=== PATIENT | female | born 1980 | race Caucasian/White ===

== ENCOUNTER 2017-05-15 10:10 | Emergency (ER) | payer MEDICAID ==
--- NOTE | 2017-05-15 10:52 | XR ---
EXAMINATION TYPE: XR ankle complete RT DATE OF EXAM: 05/15/2017 COMPARISON: NONE HISTORY: 36-year-old female fall downstairs, lateral sided pain TECHNIQUE: 3 views FINDINGS: There is a minimally displaced oblique fracture of the distal fibula at the level of the ankle joint line. There is borderline widening of the medial clear space at 4.1 mm. Talar dome appears intact. Po sterior malleolus appears intact. Subtalar joint is aligned. Tiny plantar and posterior calcaneal spu rs. Underlying ankle joint effusion noted. IMPRESSION: 1. Minimally displaced oblique fracture of the lateral malleolus. 2. Borderline widening of the medial clear space could reflect underlying deltoid ligament injury. Co nsider a medial stress view to evaluate the integrity of the deltoid ligament.
--- NOTE | 2017-05-15 11:11 | ED ---
General Adult HPI - General Chief complaint: Fall Stated complaint: fall/rt leg injury Time Seen by Provider: 05/15/17 10:19 Source: patient, RN notes reviewed Mode of arrival: wheelchair Limitations: no limitations - History of Present Illness Initial comments: Patient is a 36-year-old female who presents emergency room today with chief complaint of an injury to the right ankle that occurred approximately 2 hours. Does not that she slipped going down some stairs. Denies any other injury. Denies any head injury or loss consciousness. Admits to pain locally to the right ankle with difficulty ambulating due to pain. Patient denies any recent fever, chills, shortness of breath, chest pain, back pain, abdominal pain, nausea or vomiting, numbness or tingling, dysuria or hematuria, constipation or diarrhea, headaches or visual changes, or any other complaints. - Related Data Home Medications Medication Instructions Recorded Confirmed ALPRAZolam [Xanax] 0.5 mg PO DAILY PRN 05/15/17 05/15/17 Cetirizine HCl [Zyrtec] 10 mg PO DAILY 05/15/17 05/15/17 Doxycycline Hyclate 100 mg PO BID 05/15/17 05/15/17 Escitalopram [Lexapro] 30 mg PO DAILY 05/15/17 05/15/17 Ibuprofen [Motrin] 800 mg PO ONCE PRN 05/15/17 05/15/17 buPROPion XL [Wellbutrin Xl] 150 mg PO DAILY 05/15/17 05/15/17 Previous Rx's Medication Instructions Recorded Acetaminophen-Codeine 300-30mg 1 each PO Q6H PRN #20 tablet 05/15/17 [Tylenol #3] Allergies Allergy/AdvReac Type Severity Reaction Status Date / Time No Known Allergies Allergy Verified 05/15/17 10:45 Review of Systems ROS Statement: Those systems with pertinent positive or pertinent negative responses have been documented in the HPI. ROS Other: All systems not noted in ROS Statement are negative. Past Medical History Past Medical History: No Reported History History of Any Multi-Drug Resistant Organisms: None Reported Past Surgical History: Appendectomy, Cholecystectomy Past Psychological History: Anxiety, Depression Smoking Status: Current some day smoker Past Alcohol Use History: Rare Past Drug Use History: None Reported General Exam - General Exam Comments Initial Comments: General: The patient is awake and alert, in no distress, and does not appear acutely ill. Neck: The neck is supple, there is no tenderness or JVD. Cardiovascular: There is a regular rate and rhythm. No murmur, rub or gallop is appreciated. Respiratory: Lungs are clear to auscultation, respirations are non-labored, breath sounds are equal. No wheezes, stridor, rales, or rhonchi. Musculoskeletal: Patient does have moderate swelling to the lateral aspect of the right ankle. Tender over the lateral malleolus. No tenderness over the medial. Tender in ATFL. Sensation intact. Pulses equal bilaterally 2+. No tenderness down to the right foot. No tenderness to the fibular head or right knee. Neurological: A&O x 3. CN II-XII intact, There are no obvious motor or sensory deficits. Coordination appears grossly intact. Speech is normal. Skin: Skin is warm and dry and no rashes or lesions are noted. Psychiatric: Normal mood and affect. Limitations: no limitations Course Vital Signs 05/15/17 10:12 Temperature 97.8 F Pulse Rate 89 Respiratory 17 Rate Blood Pressure 135/65 O2 Sat by Pulse 96 Oximetry Medical Decision Making - Medical Decision Making Patient x-ray reviewed and does show fracture the distal fibula. Case was discussed with attending physician Dr. William. CT of the ankle was also obtained. Patient has been splinted in a posterior short leg OCL splint. Neurovascular rechecked and intact. Patient will be given prescription for crutches and advised nonweightbearing on pain medication advised follow-up with newsperson over the next 2 days. Disposition Clinical Impression: Ankle fracture Disposition: HOME SELF-CARE Condition: Good Instructions: Ankle Fracture (ED) Additional Instructions: Please use medication as discussed. Continue to ice elevate and follow-up orthopedics over the next 2 days. Please see splinted in place until follow-up appointment. Please use crutches with nonweightbearing. Please return to emergency room if the symptoms increase or worsen or for any other concerns. Prescriptions: Acetaminophen-Codeine 300-30mg [Tylenol #3] 1 each PO Q6H PRN #20 tablet PRN Reason: Pain Referrals: Humble Michael DO [Primary Care Provider] - 1-2 days Rodriguez Guzman MD [STAFF PHYSICIAN] - 1-2 days Time of Disposition: 12:12
--- NOTE | 2017-05-15 11:57 | CT ---
CT right ankle history: Fracture Helical acquisition through the right ankle Comparison to plain film same date Oblique distal metaphyseal right fibular fracture is again noted, there is no significant displacemen t. Minimal comminuted fragments are present distally at the medial extent. There is no evident disloc ation. There is associated soft tissue swelling present. Ankle joint is intact. Achilles tendon is li catarino intact. Flexor and extensor tendons felt to be intact. IMPRESSION: Fracture as described and plain film. Additional findings above.
[2017-05-15 12:34] VITALS: BP 122/63; PULSE 64; RESP 18; TEMP 98.1
== END 2017-05-15 12:33 | disposition home or self-care (01) ==
LOC: EC 10:10
DX: S82.831A Other fracture of upper and lower end of right fibula, initial encounter for closed fracture (principal); F41.9 Anxiety disorder, unspecified; F32.9 Major depressive disorder, single episode, unspecified; F17.200 Nicotine dependence, unspecified, uncomplicated; Z79.899 Other long term (current) drug therapy; W10.9XXA Fall (on) (from) unspecified stairs and steps, initial encounter
CPT/HCPCS: 29515; 99284

== ENCOUNTER → 2017-12-11 | Outpatient (CLI) | payer MEDICAID | END | disposition home or self-care (01) | LOC: LABWHC1 11:42 | PROVIDERS: ATTEND Orthopaedic Surgery | DX: E55.9 Vitamin D deficiency, unspecified (principal) | CPT/HCPCS: 36415; 82306 ==

== ENCOUNTER → 2019-05-10 | Outpatient (CLI) | payer MEDICAID ==
[2019-05-10 14:02] LABS: African American GFR (CKD) 94.7 (60.0-200.0); Albumin 4.2 g/dL (3.80-4.90); Albumin/Globulin Ratio 2.21 (1.60-3.17); Anion Gap 9.6 mmol/L (4.00-12.00); Calcium 9.6 mg/dL (8.7-10.3); Carbon Dioxide 24.4 mmol/L (21.6-31.8); Globulin 1.9 g/dL (1.6-3.3); Potassium 4.1 mmol/L (3.5-5.5); Total Bilirubin 0.5 mg/dL (0.3-1.2); Total Protein 6.1 g/dL (6.2-8.2)
== END | disposition home or self-care (01) ==
LOC: LABWHC1 07:34
PROVIDERS: ATTEND Physician Assistant
DX: L70.0 Acne vulgaris (principal)
CPT/HCPCS: 36415; 80053

== ENCOUNTER → 2020-11-20 | Outpatient (CLI) | payer MEDICAID | END | disposition home or self-care (01) | LOC: LABWHC1 15:52 | PROVIDERS: ATTEND Family Medicine | DX: Z03.818 Encounter for observation for suspected exposure to other biological agents ruled out (principal); Z20.822 Contact with and (suspected) exposure to COVID-19 | CPT/HCPCS: U0003; C9803; U0005 ==

== ENCOUNTER → 2020-12-04 | Outpatient (CLI) | payer MEDICAID ==
[2020-12-05 00:13] LABS: Basophils # (A) 0.05 X 10*3/uL (0.00-0.10); Basophils % (A) 0.5 %; Eosinophils # (A) 0.25 X 10*3/uL (0.04-0.35); Eosinophils % (A) 2.7 %; HCT 45.3 % (37.2-46.3); HGB 15.1 g/dL (12.0-15.0); Lymphocytes # (A) 2.55 X 10*3/uL (0.90-5.00); Lymphocytes % (A) 27.2 %; MCH 31.8 pg (27.0-32.0); MCHC 33.3 g/dL (32.0-37.0); MCV 95.4 fL (80.0-97.0); Mean Platelet Volume 9.9 fL (9.5-12.2); Monocytes % (A) 6.4 %; Neutrophils # (A) 5.91 X 10*3/uL (1.80-7.70); Platelet Count 264 X 10*3/uL (140-440); RBC 4.75 X 10*6/uL (4.10-5.20); RDW 11.9 % (11.5-14.5); WBC 9.38 X 10*3/uL (4.50-10.00)
[2020-12-05 04:11] LABS: African American GFR (CKD) 93.4 (60.0-200.0); Albumin 4.3 g/dL (3.80-4.90); Albumin/Globulin Ratio 1.72 (1.60-3.17); Anion Gap 9.4 mmol/L (4.00-12.00); BUN/Creat Ratio 15.56 Ratio (12.00-20.00); Carbon Dioxide 24.6 mmol/L (21.6-31.8); Globulin 2.5 g/dL (1.6-3.3); Non-African American GFR(CKD) 80.5 (60.0-200.0); Potassium 4.1 mmol/L (3.5-5.5); Total Bilirubin 0.2 mg/dL (0.3-1.2); Total Protein 6.8 g/dL (6.2-8.2)
[2020-12-05 04:20] LABS: T4, Free (Free Thyroxine) 1.1 ng/dL (0.80-1.80)
== END | disposition home or self-care (01) ==
LOC: LABWHC1 15:07
PROVIDERS: ATTEND Family Medicine
DX: B34.1 Enterovirus infection, unspecified (principal); R53.81 Other malaise
CPT/HCPCS: 36415; 80053; 82306; 84439; 84443; 85025

== ENCOUNTER → 2021-11-29 | Outpatient (CLI) | payer MEDICAID ==
--- NOTE | 2021-11-29 22:13 | XR ---
EXAMINATION TYPE: XR hand complete LT DATE OF EXAM: 11/29/2021 CLINICAL HISTORY: Left hand pain worse and third PIP joint. TECHNIQUE: Frontal, lateral and oblique images of the left hand are obtained. COMPARISON: None. FINDINGS: There is no acute fracture/dislocation evident in the left hand. Mild to moderate narrowin g throughout the PIP and DIP joints of the phalanges also at level of the fifth MCP joint. No signif icant spurring. The overlying soft tissue appears unremarkable. IMPRESSION: As above.
== END | disposition home or self-care (01) ==
LOC: RADXRMAIN 16:47
PROVIDERS: ATTEND Family Medicine
DX: M79.642 Pain in left hand (principal)

== ENCOUNTER → 2021-12-03 | Outpatient (CLI) | payer MEDICAID ==
[2021-12-03 23:11] LABS: Basophils # (A) 0.06 X 10*3/uL (0.00-0.10); Basophils % (A) 0.4 %; Eosinophils # (A) 0.04 X 10*3/uL (0.04-0.35); Eosinophils % (A) 0.3 %; HCT 48.7 % (37.2-46.3); HGB 15.5 g/dL (12.0-15.0); Lymphocytes # (A) 2.03 X 10*3/uL (0.90-5.00); Lymphocytes % (A) 13.3 %; MCH 30.9 pg (27.0-32.0); MCHC 31.8 g/dL (32.0-37.0); Mean Platelet Volume 9.5 fL (9.5-12.2); Monocytes # (A) 0.37 X 10*3/uL (0.20-1.00); Monocytes % (A) 2.4 %; NRBC Per 100 WBC 0 /100 WBCS (0.0-0.0); Neutrophils # (A) 12.64 X 10*3/uL (1.80-7.70); Neutrophils % (A) 82.6 %; Platelet Count 297 X 10*3/uL (140-440); RBC 5.02 X 10*6/uL (4.10-5.20); RDW 12.7 % (11.5-14.5); WBC 15.29 X 10*3/uL (4.50-10.00)
[2021-12-03 23:28] LABS: Glucose 107 mg/dL (70-110); Potassium 4.1 mmol/L (3.5-5.5); Sodium 140 mmol/L (135-145)
[2021-12-03 23:29] LABS: ALT 14 U/L (8-44); AST 10 U/L (13-35); African American GFR (CKD) 109.5 (60.0-200.0); Albumin 4.2 g/dL (3.8-4.9); Albumin/Globulin Ratio 1.75 (1.60-3.17); Alkaline Phosphatase 50 U/L (41-126); BUN/Creat Ratio 23.98 Ratio (12.00-20.00); Blood Urea Nitrogen 18.8 mg/dL (9.0-27.0); C Reactive Protein <0.30 mg/dL (0.00-0.80); Calcium 9.5 mg/dL (8.7-10.3); Carbon Dioxide 27.7 mmol/L (20.0-27.5); Chloride 98 mmol/L (96-109); Globulin 2.4 g/dL (1.6-3.3); Non-African American GFR(CKD) 94.5 (60.0-200.0); Total Protein 6.5 g/dL (6.2-8.2); Uric Acid 4.6 mg/dL (2.9-7.7)
[2021-12-03 23:36] LABS: Rheumatoid Factor, Qnt <10 IU/mL (0-15)
[2021-12-04 01:00] LABS: Erythrocyte Sedimentation Rate 4 mm/Hr (0-20)
[2021-12-04 05:20] LABS: Cyclic Citrull Pep IgG Unit <0.5 U/mL; Cyclic Citrullinated Pep IgG NEGATIVE (NEGATIVE)
== END | disposition home or self-care (01) ==
LOC: LABWHC1 12:31
PROVIDERS: ATTEND Family Medicine
DX: Z00.00 Encounter for general adult medical examination without abnormal findings (principal)
CPT/HCPCS: 36415; 80053; 84439; 84443; 84550; 85025; 85652; 86038; 86140; 86200; 86431

== ENCOUNTER 2024-07-15 07:49 | Emergency (ER) | payer MEDICAID ==
[2024-07-15] MEDS: KETOROLAC 15 MG/ML 1 ML VIAL IM STA (08:29)
--- NOTE | 2024-07-15 08:38 | ED ---
General Adult HPI - General Chief complaint: Back Pain/Injury Stated complaint: back pain Time Seen by Provider: 07/15/24 07:54 Source: patient, RN notes reviewed, old records reviewed Mode of arrival: ambulatory Limitations: no limitations - History of Present Illness Initial comments: 43-year-old female presenting with mid low back pain. No specific injury. Patient states this has worsened over the past 24 hours. She has had issue with low back pain in the past. Patient denies any hematuria or dysuria. Denies flank pain. Denies abdominal pain. Denies any loss of bowel or bladder function. No fever. - Related Data Home Medications Medication Instructions Recorded Confirmed ALPRAZolam [Xanax] 0.5 mg PO DAILY PRN 05/15/17 05/15/17 Cetirizine HCl [Zyrtec] 10 mg PO DAILY 05/15/17 05/15/17 Doxycycline Hyclate 100 mg PO BID 05/15/17 05/15/17 Escitalopram [Lexapro] 30 mg PO DAILY 05/15/17 05/15/17 Ibuprofen [Motrin] 800 mg PO ONCE PRN 05/15/17 05/15/17 buPROPion XL [Wellbutrin Xl] 150 mg PO DAILY 05/15/17 05/15/17 Previous Rx's Medication Instructions Recorded Acetaminophen-Codeine 300-30mg 1 each PO Q6H PRN #20 tablet 05/15/17 [Tylenol #3] Cyclobenzaprine [Flexeril] 10 mg PO TID PRN #9 tab 07/15/24 Ibuprofen [Motrin] 600 mg PO Q8HR PRN #24 tab 07/15/24 Allergies Allergy/AdvReac Type Severity Reaction Status Date / Time No Known Allergies Allergy Verified 07/15/24 07:54 Review of Systems ROS Statement: Those systems with pertinent positive or pertinent negative responses have been documented in the HPI. ROS Other: All systems not noted in ROS Statement are negative. Past Medical History Past Medical History: No Reported History History of Any Multi-Drug Resistant Organisms: None Reported Past Surgical History: Appendectomy, Cholecystectomy Past Psychological History: Anxiety, Depression Smoking Status: Current every day smoker Past Alcohol Use History: Rare Past Drug Use History: None Reported General Exam Limitations: no limitations General appearance: alert, in no apparent distress Head exam: Present: atraumatic, normocephalic Eye exam: Present: normal appearance, PERRL Neck exam: Present: normal inspection. Absent: tenderness Cardiovascular Exam: Present: regular rate, normal rhythm GI/Abdominal exam: Present: soft. Absent: distended, tenderness, guarding, rebound Extremities exam: Present: normal inspection, normal capillary refill Back exam: Present: vertebral tenderness (Lumbar) Neurological exam: Present: alert, oriented X3 Psychiatric exam: Present: normal affect, normal mood Skin exam: Present: warm, dry, intact Course Vital Signs 07/15/24 07:51 Temperature 97.6 F Pulse Rate 85 Respiratory 24 Rate Blood Pressure 113/78 O2 Sat by Pulse 98 Oximetry Medical Decision Making - Medical Decision Making Was pt. sent in by a medical professional or institution (, [facility], OFFENDER EMPLOYMENT SPECIALIST, urgent care, hospital, or [place] health care facility...) When possible be specific @ -No Did you speak to anyone other than the patient for history (EMS, parent, family, police, friend...)? What history was obtained from this source @ -No Did you review nursing and triage notes (agree or disagree)? Why? @ -I reviewed and agree with nursing and triage notes Were old charts reviewed (outside hosp., previous admission, EMS record, old EKG, old radiological studies, urgent care reports/EKG's, [place] health care facility records)? Report findings @ -No old charts were reviewed Differential Back Pain: Strain, zoster, cauda equina syndrome, epidural abscess, vertebral osteomyelitis, discitis, fracture, subluxation, disc herniation, DJD, spinal stenosis, dissection, AAA, pancreatitis, peptic ulcer disease, pyelonephritis, kidney stone, this is not meant to be an all-inclusive list. EKG interpreted by me (3pts min.). @ -As above X-rays interpreted by me (1pt min.). @ -X-rays of the lumbar spine show loss of lordosis without acute bony abnormality. CT interpreted by me (1pt min.). @ -None done U/S interpreted by me (1pt. min.). @ -None done What testing was considered but not performed or refused? (CT, X-rays, U/S, labs)? Why? @ -None What meds were considered but not given or refused? Why? @ -None Did you discuss the management of the patient with other professionals (professionals i.e. , PA, OFFENDER EMPLOYMENT SPECIALIST, lab, RT, psych nurse, rn social services, television and radio repairer, teacher, community reinvestment act officer, foster care case manager)? Give summary @ -No Was smoking cessation discussed for >3mins.? @ -No Was critical care preformed (if so, how long)? @ -No Were there social determinants of health that impacted care today? How? (Homelessness, low income, unemployed, alcoholism, drug addiction, transportation, low edu. Level, literacy, decrease access to med. care, retirement, rehab)? @ -No Was there de-escalation of care discussed even if they declined (Discuss DNR or withdrawal of care, Hospice)? DNR status @ -No What co-morbidities impacted this encounter? (DM, HTN, Smoking, COPD, CAD, Cancer, CVA, ARF, Chemo, Hep., AIDS, mental health diagnosis, sleep apnea, morbid obesity)? @ -None Was patient admitted / discharged? Hospital course, mention meds given and route, prescriptions, significant lab abnormalities, going to OR and other pertinent info. @43-year-old female with low back pain patient's pain was midline I did perform x-rays which were negative for acute bony abnormality. Patient feels better after Valium and Toradol. Will be prescribed Motrin and Flexeril and will follow closely with the primary care provider. She has no red flag symptoms, no radicular symptoms. Undiagnosed new problem with uncertain prognosis? @ -No Drug Therapy requiring intensive monitoring for toxicity (Heparin, Nitro, Insulin, Cardizem)? @ -No Were any procedures done? @ -No Diagnosis/symptom? @Acute low back pain Acute, or Chronic, or Acute on Chronic? @ -[Acute Uncomplicated (without systemic symptoms) or Complicated (systemic symptoms)? @ -Default Side effects of treatment? @ -No Exacerbation, Progression, or Severe Exacerbation? @ -No Poses a threat to life or bodily function? How? (Chest pain, [place], [place], pneumonia, PE, COPD, DKA, ARF, appy, cholecystitis, CVA, Diverticulitis, Homicidal, Suicidal, threat to staff... and all critical care pts) @ -No Disposition Clinical Impression: Mechanical back pain Disposition: HOME SELF-CARE Condition: Fair Instructions (If sedation given, give patient instructions): Acute Low Back Pain (ED) Prescriptions: Cyclobenzaprine [Flexeril] 10 mg PO TID PRN #9 tab PRN Reason: Muscle Spasm Ibuprofen [Motrin] 600 mg PO Q8HR PRN #24 tab PRN Reason: Pain Is patient prescribed a controlled substance at d/c from ED?: No Referrals: Arnulfo Ring DO [Primary Care Provider] - 1-2 days Time of Disposition: 09:31
--- NOTE | 2024-07-15 09:24 | XR ---
EXAMINATION TYPE: XR lumbosacral spine min 4V DATE OF EXAM: 07/15/2024 9:04 AM COMPARISON: None. CLINICAL INDICATION: Female, 43 years old with history of pain, TECHNIQUE: 5 view(s) obtained. FINDINGS: There are 5 lumbar-type vertebral bodies. Pedicles are intact. Mild disc space narrowing is present L 4-5 and to a lesser degree L3-4 and L2-3. Vertebral body heights are preserved. Minimal kyphosis is p resent within the thoracolumbar spine. No spondylolisthesis is evident. Facets are normal. No spondyl olytic defects are evident. IMPRESSION: 1. No acute osseous abnormality radiographically apparent. 2. Mild degenerative disc changes. 3. Thoracolumbar kyphosis could be related to patient positioning or muscle spasm. [facility], , 07/15/2024 9:21 AM
[2024-07-15 10:28] VITALS: BP 127/75; PULSE 72; RESP 18; TEMP 98.8
== END 2024-07-15 10:10 | disposition home or self-care (01) ==
LOC: EC 07:49
DX: M54.50 Low back pain, unspecified (principal); F17.200 Nicotine dependence, unspecified, uncomplicated
CPT/HCPCS: 72110; 99283; 96372 ×2; J3360; J1885